=== PATIENT | male | born 1945 | race Caucasian/White ===

== ENCOUNTER 2016-06-19 19:02 | Emergency (ER) | payer SELFPAY ==
--- NOTE | 2016-06-19 20:36 | DIAGNOSTIC IMAGING REPORT ---
PROCEDURE: XR CHEST 1 VIEW INDICATION: CHEST PAIN TECHNIQUE: Portable AP view (2020 hours). COMPARISON: None. FINDINGS: Allowing for suboptimal inspiration and rotation, lungs are clear. Heart and mediastinum are normal. Tortuous and ectatic thoracic aorta. Moderate degenerative change of the thoracic spine. IMPRESSION: 1. Allowing for suboptimal inspiration and rotation, negative chest.
--- NOTE | 2016-06-19 21:43 | ED NURSING NOTES ---
Clinical Report - Nurses [facility] [address] [place] [address] 06/19/2016 19:02 Patient: BLAIRE LEROY TRIAGE Triage time 06:55. Acuity: LEVEL 3. Chief Complaint: CHEST PAIN. 19:10 06/19/16. Alert. No acute distress. SEPSIS SCREEN: Sepsis Screen. Negative (no infection suspected/documented). RAYMON COMA SCORE: Raymon Coma Scale: 15- eyes open spontaneously (4); best verbal response- oriented x 4 (5); best motor response- obeys commands (6). --19:10 Gertrudis Cook R.N. 19:04 06/19/16. BP: 150/44. HR: 76. RR: 20. O2 saturation: 93%. Temp: 97.4 F. Pain level now: 06/13. --19:10 Gertrudis Cook R.N. Weight: 107.9 kg stated. Height/Length: 74 inches Per Patient. BMI: 30.6. --19:09 Gertrudis Cook R.N. Medications Lisinopril Oral. --19:06 Gertrudis Cook R.N. Vitamin c Oral. --19:06 Gertrudis Cook R.N. Fish Oil Oral. --19:06 Gertrudis Cook R.N. Aspirin Oral. --19:07 Gertrudis Cook R.N. Prostate medicine (unknown). --19:07 Gertrudis Cook R.N. Allergies None. --19:07 Gertrudis Cook R.N. History Arrived by EMS. Historian: patient. Primary physician (Amauri June). This started just prior to arrival. No difficulty breathing, sweating episodes, nausea or vomiting. Treatment DIRECTOR DRUG: None. PAST MEDICAL HX: Immunizations: up-to-date. SOCIAL HX: Never smoker. Occasional alcohol use. No drug use. ABUSE ASSESSMENT: No report of abuse. FALL RISK ASSESSMENT: Fall risk assessment completed. No fall risk identified. NUTRITIONAL RISK ASSESSMENT: The nutritional risk assessment revealed no deficiencies. FUNCTIONAL ASSESSMENT: Functional assessment: no impairments noted. LEARNING NEEDS ASSESSMENT: The learning needs assessment revealed no barriers. SKIN INTEGRITY ASSESSMENT: Skin integrity risk assessment completed. No skin integrity risk identified. --19:10 Gertrudis Cook R.N. Treatment DIRECTOR DRUG: EMS treatment DIRECTOR DRUG verbally communicated. BP: 134 / 88. HR: 80. RR: 16. O2 saturation: 94. ( EMS reports that the patient was driving to his mother's house when he experienced chest pain and went to the fire department.). --19:39 Gertrudis Cook R.N. PROBLEMS: Hypertension. --19:08 Gertrudis Cook R.N. ADDITIONAL SURGERIES: Testicle surgery. --19:08 Gertrudis Cook R.N. Interventions ID band on patient. To treatment room. --19:10 Gertrudis Cook R.N. PHYSICAL ASSESSMENT ( Pt states that he fell a "week or two ago" and states that he started having chest pain the day after that,. He states that tonight his "pain changed" and moved to his left shoulder tonight.). GENERAL / NEURO / PSYCH: Alert. Oriented X 4. HEENT: Mucous membranes are pink. RESPIRATORY: No respiratory distress. Respirations not labored. Left upper costochondral tenderness. Breath sounds within normal limits. CVS: Normal sinus rhythm noted. Heart sounds within normal limits. Capillary refill less than 2 seconds. GI / : Abdomen soft and nontender. EXTREMITIES: No lower extremity edema. SKIN: Skin is warm and dry. Skin is non-tender. --19:28 Adi Lundy R.N. NURSING PROGRESS NOTES ( Report received from Gertrudis Barrow RN). --19:[address] recording monitor, pulse oximeter and NIBP monitor placed on patient. Patient gowned. Head of bed elevated. Two patient identifiers checked. Call light placed in reach. Side rails up x 2. Bed placed in lowest position. Brakes of bed on. Patient ready for evaluation- chart flagged. Patient waiting for evaluation. --19:28 Adi Lundy R.N. 19:09 06/19/2016 Site #1 started via IV in the right antecubital space with an 20g angiocath, with aseptic technique and good blood return; one attempt. Blood drawn: rainbow set. Labeled in the presence of the patient and sent to the lab. Saline lock flushed with 10 mL saline. --19:31 Adi Lundy R.N. 20:23 06/19/2016 Aspirin PO Tablets 325 mg given. Allergies verified and confirmed 5 rights. --20:23 Adi Lundy R.N. ( 2018: Patient refused oxygen stating "There's no way you're going to prove to me that I need oxygen." Patient states "I don't want to spend my money on something that I don't need."). --20:42 Adi Lundy R.N. 21:50 06/19/2016 IV Saline Lock Drip IV Discontinued: discontinued upon discharge. IV patency established. IV site checked: no pain, redness, or swelling. IV flushed thoroughly. --21:54 Adi Lundy R.N. DISPOSITION / DISCHARGE 21:52 06/19/2016 Site #1 removed upon discharge. Manual pressure and bandage applied. --21:52 dAi Lundy R.N. Condition at departure: stable. No learning barriers present. Discharge instructions provided and reviewed with the patient. Reviewed warnings. Reviewed medication(s) side effects, precautions, dosing and course information. Prescription(s) given to the patient. Treatments reviewed. Reviewed referrals for followup. Patient verbalized understanding. Written instructions provided in Romanian. The patient was discharged home and accompanied by ledge man. He left the Emergency Department ambulatory and via private vehicle. Patient driving. --21:53 Adi Lundy R.N. 21:52 06/19/16. BP: 156/92. HR: 71. RR: 21 (regular and unlabored). O2 saturation: 95% on room air. --21:53 Adi Lundy R.N. Departure time: 21:53. --21:53 Adi Lundy R.N. Locked/Released at 06/19/2016 21:54 by Adi Lundy R.N.
--- NOTE | 2016-06-19 21:43 | ED NURSING NOTES ---
Clinical Report - Nurses Merged With [facility] [address] [place] [address] 06/19/2016 19:02 Patient: BLAIRE LEROY TRIAGE Triage time 06:55. Acuity: LEVEL 3. Chief Complaint: CHEST PAIN. 19:10 06/19/16. Alert. No acute distress. SEPSIS SCREEN: Sepsis Screen. Negative (no infection suspected/documented). RAYMON COMA SCORE: Raymon Coma Scale: 15- eyes open spontaneously (4); best verbal response- oriented x 4 (5); best motor response- obeys commands (6). --19:10 Gertrudis Cook R.N. 19:04 06/19/16. BP: 150/44. HR: 76. RR: 20. O2 saturation: 93%. Temp: 97.4 F. Pain level now: 06/13. --19:10 Gertrudis Cook R.N. Weight: 107.9 kg stated. Height/Length: 74 inches Per Patient. BMI: 30.6. --19:09 Gertrudis Cook R.N. Medications Lisinopril Oral. --19:06 Gertrudis Cook R.N. Vitamin c Oral. --19:06 Gertrudis Cook R.N. Fish Oil Oral. --19:06 Gertrudis Cook R.N. Aspirin Oral. --19:07 Gertrudis Cook R.N. Prostate medicine (unknown). --19:07 Gertrudis Cook R.N. Allergies None. --19:07 Gertrudis Cook R.N. History Arrived by EMS. Historian: patient. Primary physician (Amauri June). This started just prior to arrival. No difficulty breathing, sweating episodes, nausea or vomiting. Treatment MEDICAL ASSISTANT SUPERVISOR: None. PAST MEDICAL HX: Immunizations: up-to-date. SOCIAL HX: Never smoker. Occasional alcohol use. No drug use. ABUSE ASSESSMENT: No report of abuse. FALL RISK ASSESSMENT: Fall risk assessment completed. No fall risk identified. NUTRITIONAL RISK ASSESSMENT: The nutritional risk assessment revealed no deficiencies. FUNCTIONAL ASSESSMENT: Functional assessment: no impairments noted. LEARNING NEEDS ASSESSMENT: The learning needs assessment revealed no barriers. SKIN INTEGRITY ASSESSMENT: Skin integrity risk assessment completed. No skin integrity risk identified. --19:10 Gertrudis Cook R.N. Treatment MEDICAL ASSISTANT SUPERVISOR: EMS treatment MEDICAL ASSISTANT SUPERVISOR verbally communicated. BP: 134 / 88. HR: 80. RR: 16. O2 saturation: 94. ( EMS reports that the patient was driving to his mother's house when he experienced chest pain and went to the fire department.). --19:39 Gertrudis Cook R.N. PROBLEMS: Hypertension. --19:08 Gertrudis Cook R.N. ADDITIONAL SURGERIES: Testicle surgery. --19:08 Gertrudis Cook R.N. Interventions ID band on patient. To treatment room. --19:10 Gertrudis Cook R.N. PHYSICAL ASSESSMENT ( Pt states that he fell a "week or two ago" and states that he started having chest pain the day after that,. He states that tonight his "pain changed" and moved to his left shoulder tonight.). GENERAL / NEURO / PSYCH: Alert. Oriented X 4. HEENT: Mucous membranes are pink. RESPIRATORY: No respiratory distress. Respirations not labored. Left upper costochondral tenderness. Breath sounds within normal limits. CVS: Normal sinus rhythm noted. Heart sounds within normal limits. Capillary refill less than 2 seconds. GI / : Abdomen soft and nontender. EXTREMITIES: No lower extremity edema. SKIN: Skin is warm and dry. Skin is non-tender. --19:28 Adi Lundy R.N. NURSING PROGRESS NOTES ( Report received from Gertrudis Barrow RN). --19:20 Adi Lundy R.N. groundwater monitoring technician, pulse oximeter and NIBP monitor placed on patient. Patient gowned. Head of bed elevated. Two patient identifiers checked. Call light placed in reach. Side rails up x 2. Bed placed in lowest position. Brakes of bed on. Patient ready for evaluation- chart flagged. Patient waiting for evaluation. --19:28 Adi Lundy R.N. 19:09 06/19/2016 Site #1 started via IV in the right antecubital space with an 20g angiocath, with aseptic technique and good blood return; one attempt. Blood drawn: rainbow set. Labeled in the presence of the patient and sent to the lab. Saline lock flushed with 10 mL saline. --19:31 Adi Lundy R.N. 20:23 06/19/2016 Aspirin PO Tablets 325 mg given. Allergies verified and confirmed 5 rights. --20:23 Adi Lundy R.N. ( 2018: Patient refused oxygen stating "There's no way you're going to prove to me that I need oxygen." Patient states "I don't want to spend my money on something that I don't need."). --20:42 Adi Lundy R.N. 21:50 06/19/2016 IV Saline Lock Drip IV Discontinued: discontinued upon discharge. IV patency established. IV site checked: no pain, redness, or swelling. IV flushed thoroughly. --21:54 Adi Lundy R.N. DISPOSITION / DISCHARGE 21:52 06/19/2016 Site #1 removed upon discharge. Manual pressure and bandage applied. --21:52 Adi Lundy R.N. Condition at departure: stable. No learning barriers present. Discharge instructions provided and reviewed with the patient. Reviewed warnings. Reviewed medication(s) side effects, precautions, dosing and course information. Prescription(s) given to the patient. Treatments reviewed. Reviewed referrals for followup. Patient verbalized understanding. Written instructions provided in Venezuelan. The patient was discharged home and accompanied by casualty underwriter. He left the Emergency Department ambulatory and via private vehicle. Patient driving. --21:53 Adi Lundy R.N. 21:52 06/19/16. BP: 156/92. HR: 71. RR: 21 (regular and unlabored). O2 saturation: 95% on room air. --21:53 Adi Lundy R.N. Departure time: 21:53. --21:53 Adi Lundy R.N. Locked/Released at 06/19/2016 21:54 by Adi Lundy R.N.
--- NOTE | 2016-06-19 21:43 | ED CLINICAL REPORT ---
Clinical Report - Physicians/Mid Levels [facility] [address] [place] [address] 06/19/2016 19:02 Patient: BLAIRE LEROY Time Seen: 19:35. Arrived- By private vehicle. Historian- patient. HISTORY OF PRESENT ILLNESS Chief Complaint: CHEST PAIN. At its maximum, severity described as 4 / 10. When seen in the E.D., severity described as 0 / 10. Modifying factors- worsened by movement and deep breaths. It is described as aching and it is described as located in the left chest area and radiating to the left shoulder. This started about 1 weeks ago and is now gone. It was abrupt in onset and has been intermittent. Onset during with movement. No nausea, vomiting, difficulty breathing or diaphoresis. Similar symptoms previously: None. REVIEW OF SYSTEMS No chills, fever, sweats, calf pain or cough. No difficulty breathing, pedal edema, palpitations, abdominal pain or black stools. No bloody stools, constipation, diarrhea, nausea or vomiting. No urinary problems. All systems otherwise negative, except as recorded above. PAST HISTORY PCP - Hero June. Problems: Hypertension. Additional Surgeries: Testicle surgery. Medications: Prostate medicine (unknown). Aspirin Oral. Fish Oil Oral. Vitamin c Oral. Lisinopril Oral. Allergies: None. SOCIAL HISTORY Never smoker. Occasional alcohol use. Residence: [place]. FAMILY HISTORY Denies family medical history. ADDITIONAL NOTES The nursing notes have been reviewed. PHYSICAL EXAM Vital Signs: 06/19/2016 19:04 BP: 150/44. HR: 76. RR: 20. O2 saturation: 93%. Temp: 97.4 F. Pain level now: 4/10. Have been reviewed. Appearance: Alert. Eyes: Pupils equal, round and reactive to light. ENT: Pharynx normal. Neck: Normal inspection. Neck supple. No JVD. CVS: Normal heart rate and rhythm. Heart sounds normal. Respiratory: No respiratory distress. Chest pain reproducible with palpation of the lateral chest wall, with movement of the left arm and with deep breathing. Breath sounds normal. No splinting, decreased air movement, rales, rhonchi or wheezes. Abdomen: Soft and nontender. Bowel sounds normal. No organomegaly. No mass. Back: Normal external inspection. No CVA tenderness. Skin: Skin warm and dry. Normal skin color. No rash. Normal skin turgor. Extremities: Extremities exhibit normal ROM. No calf tenderness. No lower extremity edema. LABS, X-RAYS, AND EKG EKG: Rate: 77. Left axis deviation. Non-specific ST segment / T wave abnormalities. Prior EKG unavailable. The study has been independently viewed by me. Chest X-ray: (IMPRESSION: 1. Allowing for suboptimal inspiration and rotation, negative chest.). The X-rays were interpreted by the radiologist and contemporaneously by me. Laboratory Tests: CBC w Diff: (MIGUELINA: 06/19/2016 19:09) ( MsgRcvd 06/19/2016 19:44) Final results Test Result Flag Units (Reference) WHITE BLOOD COUNT 9.0 K/uL (4.5-11.5) RED BLOOD COUNT 4.28 L M/uL (4.50-5.90) HEMOGLOBIN 12.3 L gm/dL (13.5-17.5) HEMATOCRIT 37.5 L % (41.0-53.0) MEAN CELL VOLUME 88 fL (80-100) MEAN CORPUSCULAR HGB 29 pg (26-34) MEAN CORPUSCULAR HGB CONC 33 g/dL (31-37) RED CELL DISTRIBUTION WIDTH 14.0 % (11.6-14.8) PLATELET COUNT 326 K/uL (150-400) NEUTROPHIL % 63.0 % (50-75) LYMPH % 24.3 L % (25-40) MONO % 8.1 % (3-14) EOSINOPHIL % 4.1 H % (0-4) BASOPHIL % 0.5 % (0-2) PT with INR: (MIGUELINA: 06/19/2016 19:09) ( MsgRcvd 06/19/2016 20:29) Final results Test Result Flag Units (Reference) INR 1.0 (0.8-1.2) Low Intensity Therapy: INR 1.5-2.0 PT range 18.5-23.1Mod.Intensity Therapy: INR 2.0-3.0 PT range 23.1-31.5High Intensity Therapy: INR 2.5-3.5 PT range 27.4-35.5High Intensity Therapy 2: INR 3.0-4.0 PT range 31.5-39.3 APTT 33 SECONDS (24-34) BNP: (MIGUELINA: 06/19/2016 19:09) ( [facility] 06/19/2016 20:48) Final results Test Result Flag Units (Reference) B-TYPE NATRIURETIC PEPTIDE 29.1 pg/ml (5-100) Lipase: (MIGUELINA: 06/19/2016 19:09) ( [facility] 06/19/2016 20:33) Final results Test Result Flag Units (Reference) LIPASE 266 U/L (73-393) AMYLASE 63 U/L (25-115) CHEM 13 PANEL: (MIGUELINA: 06/19/2016 19:09) ( [facility] 06/19/2016 19:58) Final results Test Result Flag Units (Reference) GLUCOSE 128 H mg/dL (70-110) BUN 26 H mg/dL (7-18) CREATININE 1.2 mg/dL (0.6-1.3) Estimated GFR >60 mL/min Estimated GFR- >60 mL/min Note: Persistent reduction over 3 months in eGFR<60 mL/min/1.73 m2 defines CKD. Patients with eGFR values>=60 mL/min/1.73 m2 may also have CKD if evidence ofpersistent proteinuria. Additional information may be foundat www.kidney.org. SODIUM 141 mmol/L (136-145) POTASSIUM 4.1 mmol/L (3.5-5.1) CHLORIDE 106 mmol/L (98-107) CARBON DIOXIDE 24 mmol/L (21-32) CALCIUM 9.5 mg/dL (8.5-10.1) TOTAL PROTEIN 7.9 g/dL (6.4-8.2) ALBUMIN 3.8 g/dL (3.3-5.0) BILIRUBIN, TOTAL 0.3 mg/dL (0.0-1.0) ALKALINE PHOSPHATASE 40 L U/L (46-116) AST (SGOT) 22 U/L (15-37) ALT (SGPT) 24 U/L (12-78) MAGNESIUM 2.0 mg/dL (1.8-2.4) CPK 74 U/L (24-260) TROPONIN I 0.06 ng/mL (0.00-1.5) TROPONIN REFERENCE RANGE:<0.1 NEGATIVE0.1-1.5 INDETERMINANT>1.5 POSITIVE . PROGRESS AND PROCEDURES Course of Care: Patient is stable. Patient/family counseled. Old medical records ordered. Old records unavailable. Disposition: Discharged. Condition: stable. CLINICAL IMPRESSION Chest wall pain INSTRUCTIONS Warnings: Further evaluation is necessary. GENERAL WARNINGS: Return or contact your physician immediately if your condition worsens or changes unexpectedly, if not improving as expected, or if other problems arise. Your Current Medications: CONTINUE TAKING THE FOLLOWING MEDICATIONS: Aspirin Oral. Fish Oil Oral. Lisinopril Oral. Prostate medicine (unknown)*. Vitamin c Oral. OTC Medications: Motrin (available over the counter): take according to label instructions. Follow-up: Follow up with your doctor tomorrow. Call for an appointment. Understanding of the discharge instructions verbalized by patient. (Electronically signed by Vimal Banegas MD 06/21/2016 4:06)
--- NOTE | 2016-06-19 21:43 | ED ORDER SUMMARY ---
..... Patient: BLAIRE LEROY OrderSheet [facility] VisitID: [id number] [place] [address] 71y, M Registration Date/Time: 06/19/2016 ORDER SHEET Weight: 107.9 kg (stated) Allergies: None GENERAL ORDERS: EKG - ER Stat (19:04 06/19/2016 Kay verbal order read back to Lori ESQUIVEL) (19:04 Kay) Cardiac Panel Stat (19:30 06/19/2016 DDavis R.N. per protocol) (19:30 DDavis R.N.) (Ack 19:31 CHagerty ER Latin American Studies Director) Chest 1V Urgent (20:06/19/2016 Lori ESQUIVEL) (Ack 20:12 CHagerty ER Latin American Studies Director) (20:23 CHagerty ER Latin American Studies Director) Remedial [place] (Continuous) (20:06/19/2016 Lori ESQUIVEL) (20:18 DDavis R.N.) PT with INR Urgent (20:06/19/2016 Lori ESQUIVEL) (Ack 20:12 Christina ER Latin American Studies Director) (20:18 DDavis R.N.) PTT Urgent (20:06/19/2016 Lori ESQUIVEL) (Ack 20:12 Christina ER Latin American Studies Director) (20:18 DDavis R.N.) Amylase Urgent (20:06/19/2016 Lori ESQUIVEL) (Ack 20:12 CHagmarta ER Latin American Studies Director) (20:18 DDavis R.N.) Lipase Urgent (20:06/19/2016 Lori ESQUIVEL) (Ack 20:12 Christina ER Latin American Studies Director) (20:18 DDavis R.N.) BNP Urgent (20:06/19/2016 Lori ESQUIVEL) (Ack 20:12 Christina ER Latin American Studies Director) (20:18 DDavis R.N.) Oxygen (2 L/min) (NC) (20:06/19/2016 Lori ESQUIVEL) (20:18 DDavis R.N.) Pulse oximeter (20:06/19/2016 Lori ESQUIVEL) (20:18 DDavis R.N.) MEDICATION ORDERS: Aspirin PO 325 mg (NOW) (20:09 06/19/2016 Lori ESQUIVEL) (20:23 Vincent R.N.) IV FLUIDS: IV Saline Lock (19:30 06/19/2016 Vincent R.N. per protocol) (19:31 Jumas R.N.) ORDER SHEET NOTES: [Electronically signed by Adi Lundy R.N. (21:54 06/19/2016)] [Electronically signed by Vimal Banegas MD (04:06 06/21/2016)] [Electronically locked/signed by Adi Lundy R.N. (21:54 06/19/2016)]
--- NOTE | 2016-06-19 21:43 | ED ORDER SUMMARY ---
..... Patient: BLAIRE LEROY OrderSheet [facility] VisitID: [id number] [place] [address] 71y, M Registration Date/Time: 06/19/2016 ORDER SHEET Weight: 107.9 kg (stated) Allergies: None GENERAL ORDERS: EKG - ER Stat (19:04 06/19/2016 Kay verbal order read back to Lori ESQUIVEL) (19:04 Kay) Cardiac Panel Stat (19:30 06/19/2016 DDavis R.N. per protocol) (19:30 DDavis R.N.) (Ack 19:31 CHagerty ER Finishing Machine Operator) Chest 1V Urgent (20:06/19/2016 Lori ESQUIVEL) (Ack 20:12 CHagerty ER Finishing Machine Operator) (20:23 CHagerty ER Finishing Machine Operator) Communication Spec (Continuous) (20:06/19/2016 Lori ESQUIVEL) (20:18 DDavis R.N.) PT with INR Urgent (20:06/19/2016 Lori ESQUIVEL) (Ack 20:12 Christina ER Finishing Machine Operator) (20:18 DDavis R.N.) PTT Urgent (20:06/19/2016 Lori ESQUIVEL) (Ack 20:12 Christina ER Finishing Machine Operator) (20:18 DDavis R.N.) Amylase Urgent (20:06/19/2016 Lori ESQUIVEL) (Ack 20:12 CHagmarta ER Finishing Machine Operator) (20:18 DDavis R.N.) Lipase Urgent (20:06/19/2016 Lori ESQUIVEL) (Ack 20:12 Christina ER Finishing Machine Operator) (20:18 DDavis R.N.) BNP Urgent (20:06/19/2016 Lori ESQUIVEL) (Ack 20:12 Christina ER Finishing Machine Operator) (20:18 DDavis R.N.) Oxygen (2 L/min) (NC) (20:06/19/2016 Lori ESQUIVEL) (20:18 DDavis R.N.) Pulse oximeter (20:06/19/2016 Lori ESQUIVEL) (20:18 DDavis R.N.) MEDICATION ORDERS: Aspirin PO 325 mg (NOW) (20:09 06/19/2016 Lori ESQUIVEL) (20:23 Vincent R.N.) IV FLUIDS: IV Saline Lock (19:30 06/19/2016 Vincent R.N. per protocol) (19:31 Jumas R.N.) ORDER SHEET NOTES: [Electronically signed by Adi Lundy R.N. (21:54 06/19/2016)] [Electronically signed by Vimal Banegas MD (04:06 06/21/2016)] [Electronically locked/signed by Adi Lundy R.N. (21:54 06/19/2016)]
--- NOTE | 2016-06-21 04:07 | ED MED RECONCILIATION SUMMARY ---
Patient: BLAIRE LEROY Medication Reconciliation Report [facility] VisitID: [id number] [address] [place] [address] 71y, M Registration Date/Time: 06/19/2016 Weight: 107.9 kg Height/Length: 74 in. BMI: 30.6 ALLERGIES: None The patient's Home Medications are listed below: CONTINUE TAKING THE FOLLOWING MEDICATIONS: Aspirin Oral Fish Oil Oral Lisinopril Oral Prostate medicine (unknown) Vitamin c Oral The source(s) of the original Home Medication information: Not obtained. The following Medications were given to the patient in the Emergency Department: Aspirin [PO] PO 325 mg, administered: 06/19/2016 8:23:00 PM The following Medications were prescribed to the patient: Motrin (available over the counter): take according to label instructions. -- Vimal Banegas MD
--- NOTE | 2016-06-21 04:07 | ED DISCHARGE INSTRUCTIONS ---
Patient: BLAIRE LEROY General Instructions [facility] VisitID: [id number] [place] [address] 71y, M Registration Date/Time: 06/19/2016 Chest wall pain INSTRUCTIONS Warnings: Further evaluation is necessary. GENERAL WARNINGS: Return or contact your physician immediately if your condition worsens or changes unexpectedly, if not improving as expected, or if other problems arise. Your Current Medications: CONTINUE TAKING THE FOLLOWING MEDICATIONS: Aspirin Oral. Fish Oil Oral. Lisinopril Oral. Prostate medicine (unknown)*. Vitamin c Oral. OTC Medications: Motrin (available over the counter): take according to label instructions. Follow-up: Follow up with your doctor tomorrow. Call for an appointment. Understanding of the discharge instructions verbalized by patient. ADDITIONAL INFORMATION Chest Strain A strain of the chest is due to stretching and tearing of the muscle fibers between the ribs. This may occur as a result of severe coughing, strenuous lifting or twisting injuries of the upper back. This usually causes increased pain with movement or deep breathing. This may take a few days to a few weeks to heal. Home Care: Rest. Avoid heavy lifting or strenuous exertion. Avoid any activity that causes pain. If you have a severe cough, use a cough syrup such as Robitussin DM (containing dextromethorphan) unless another cough medicine was prescribed. You may use acetaminophen (Tylenol) or ibuprofen (Motrin, Advil) to control pain, unless another medicine was prescribed. [ NOTE: If you have chronic liver or kidney disease or ever had a stomach ulcer or GI bleeding, talk with your doctor before using these medicines.] Follow Up with your doctor as directed. Get Prompt Medical Attention if any of the following occur: A change in the type of pain: if it feels different, becomes more severe, lasts longer, or begins to spread into your shoulder, arm, neck, jaw or back Shortness of breath or increased pain with breathing Cough with dark colored sputum (phlegm) or blood Weakness, dizziness, or fainting Fever of 100.4F (38C) or higher, or as directed by your healthcare provider Ibuprofen Oral tablet What is this medicine? IBUPROFEN (eye BYOO proe fen) is a non-steroidal anti-inflammatory drug (NSAID). It is used for dental pain, fever, headaches or migraines, osteoarthritis, rheumatoid arthritis, or painful monthly periods. It can also relieve minor aches and pains caused by a cold, flu, or sore throat. How should I use this medicine? Take this medicine by mouth with a glass of water. Follow the directions on the prescription label. Take this medicine with food if your stomach gets upset. Try to not lie down for at least 10 minutes after you take the medicine. Take your medicine at regular intervals. Do not take your medicine more often than directed. A special MedGuide will be given to you by the pharmacist with each prescription and refill. Be sure to read this information carefully each time. Talk to your feather washer regarding the use of this medicine in children. Special care may be needed. What side effects may I notice from receiving this medicine? Side effects that you should report to your doctor or health care coordinator as soon as possible: allergic reactions like skin rash, itching or hives, swelling of the face, lips, or tongue black or bloody stools, blood in the urine or in vomit breathing problems changes in vision chest pain general ill feeling or flu-like symptoms nausea or vomiting redness, blistering, peeling or loosening of the skin, including inside the mouth slurred speech or weakness on one side of the body stomach pain unexplained weight gain or swelling unusually weak or tired yellowing of eyes or skin Side effects that usually do not require medical attention (report to your doctor or health care coordinator if they continue or are bothersome): constipation or diarrhea dizziness gas or heartburn stomach upset What may interact with this medicine? Do not take this medicine with any of the following medications: cidofovir ketorolac methotrexate pemetrexed This medicine may also interact with the following medications: alcohol aspirin diuretics lithium other drugs for inflammation like prednisone warfarin What if I miss a dose? If you miss a dose, take it as soon as you can. If it is almost time for your next dose, take only that dose. Do not take double or extra doses. Where should I keep my medicine? Keep out of the reach of children. Store at room temperature between 15 and 30 degrees C (59 and 86 degrees F). Keep container tightly closed. Throw away any unused medicine after the expiration date. What should I tell my health care provider before I take this medicine? They need to know if you have any of these conditions: asthma cigarette smoker drink more than 3 alcohol containing drinks a day heart disease or circulation problems such as heart failure or leg edema (fluid retention) high blood pressure kidney disease liver disease stomach bleeding or ulcers an unusual or allergic reaction to ibuprofen, aspirin, other NSAIDS, other medicines, foods, dyes, or preservatives or trying to get breast-feeding What should I watch for while using this medicine? Tell your doctor or healthcare professional if your symptoms do not start to get better or if they get worse. This medicine does not prevent heart attack or stroke. In fact, this medicine may increase the chance of a heart attack or stroke. The chance may increase with longer use of this medicine and in people who have heart disease. If you take aspirin to prevent heart attack or stroke, talk with your doctor or health care coordinator. Do not take other medicines that contain aspirin, ibuprofen, or naproxen with this medicine. Side effects such as stomach upset, nausea, or ulcers may be more likely to occur. Many medicines available without a prescription should not be taken with this medicine. This medicine can cause ulcers and bleeding in the stomach and intestines at any time during treatment. Ulcers and bleeding can happen without warning symptoms and can cause . To reduce your risk, do not smoke cigarettes or drink alcohol while you are taking this medicine. You may get drowsy or dizzy. Do not drive, use machinery, or do anything that needs mental alertness until you know how this medicine affects you. Do not stand or sit up quickly, especially if you are an older patient. This reduces the risk of dizzy or fainting spells. This medicine can cause you to bleed more easily. Try to avoid damage to your teeth and gums when you brush or floss your teeth. You have been given the following additional information: Chest Wall Strain Ibuprofen Oral tablet (Electronically signed by Vimal Banegas MD 06/21/2016 4:06)
--- NOTE | 2016-06-21 04:07 | ED MAR SUMMARY ---
..... Medication Administration Record [facility] [address] [place] [address] Patient: BLAIRE LEROY Visit ID: [id number] 71y, M Weight: 107.9 kg Height/Length: 74 in BMI: 30.6 ALLERGIES: None Given 20:23 06/19/2016 Adi Lundy R.N. Medication Administered: ASPIRIN [PO], Dose: 325 mg Tablets PO. Medication Ordered: Aspirin PO 325 mg (NOW).
--- NOTE | 2016-06-21 04:07 | ED MED RECONCILIATION SUMMARY ---
Patient: BLAIRE LEROY Medication Reconciliation Report [facility] VisitID: [id number] [address] [place] [address] 71y, M Registration Date/Time: 06/19/2016 Weight: 107.9 kg Height/Length: 74 in. BMI: 30.6 ALLERGIES: None The patient's Home Medications are listed below: CONTINUE TAKING THE FOLLOWING MEDICATIONS: Aspirin Oral Fish Oil Oral Lisinopril Oral Prostate medicine (unknown) Vitamin c Oral The source(s) of the original Home Medication information: Not obtained. The following Medications were given to the patient in the Emergency Department: Aspirin [PO] PO 325 mg, administered: 06/19/2016 8:23:00 PM The following Medications were prescribed to the patient: Motrin (available over the counter): take according to label instructions. -- Vimal Banegas MD
--- NOTE | 2016-06-21 04:07 | ED MAR SUMMARY ---
..... Medication Administration Record [facility] [address] [place] [address] Patient: BLAIRE LEROY Visit ID: [id number] 71y, M Weight: 107.9 kg Height/Length: 74 in BMI: 30.6 ALLERGIES: None Given 20:23 06/19/2016 Adi Lundy R.N. Medication Administered: ASPIRIN [PO], Dose: 325 mg Tablets PO. Medication Ordered: Aspirin PO 325 mg (NOW).
== END 2016-06-19 21:54 | disposition home or self-care (01) ==
LOC: ED SRH 19:02
DX: R07.89 Other chest pain (principal); I10 Essential (primary) hypertension; Z79.899 Other long term (current) drug therapy; Z79.82 Long term (current) use of aspirin
CPT/HCPCS: 90100; 90616; 91320; 92235; 92530; 92610; 92720; 94001; 94060; 95059